=== PATIENT | female | born 1945 | race Caucasian/White ===

== ENCOUNTER → 2019-04-09 09:52 | Outpatient (CLI) | payer MEDICARE, SELFPAY ==
--- NOTE | 2019-04-09 09:59 | DI.RAD.S_ITS ---
PROCEDURE: XR SHOULDER LT MIN 2V INDICATIONS: left shoulder pain, limited ROM TECHNIQUE: 3 views of the shoulder were acquired. COMPARISON: None. FINDINGS: Bones: No fractures or dislocations there is moderately severe degenerative changes at the acromioclavicular joint and also there are severe degeneration of the glenohumeral joint.. No suspicious bony lesions. Visualized ribs appear intact. Soft tissues: No suspicious soft tissue calcifications. IMPRESSION: Shoulder joint degenerative osteoarthritis is, overall, quite severe but no trauma is found. Dictated by: Grant Shane M.D. on 04/09/2019 at 15:11 Approved by: Grant Shane M.D. on 04/09/2019 at 15:12
== END ==
PROVIDERS: Family Provider Family Medicine; Visit Provider Nurse Practitioner Family
DX: M25.512 Pain in left shoulder (principal); M19.012 Primary osteoarthritis, left shoulder
CPT/HCPCS: 73030

== ENCOUNTER → 2019-07-18 11:06 | Outpatient (CLI) | payer MEDICARE, SELFPAY ==
--- NOTE | 2019-07-18 | DI.US.S_ITS ---
PROCEDURE: US RETRO PERITONEAL LIMITED INDICATIONS: ABDOMINAL AORTIC ANEURYSM WITHOUT RUPTURE TECHNIQUE: Real time scanning was performed of the aorta and iliac arteries, with image documentation. COMPARISON: None. FINDINGS: Aorta: Proximal aortic diameter measures 1.7 cm. Mid-aorta measures 1.8 cm. Distal aortic diameter is 1.6 cm. Iliac arteries: Right common iliac artery measures 1.2 cm. Left common iliac artery measures 1.1 cm. IMPRESSION: No abdominal aortic or proximal common iliac artery aneurysm. Dictated by: Jose Manuel GAO Interpreted: Anyi Ambrocio MD on 07/18/2019 at 14:54 Approved by: Anyi Ambrocio M.D. on 07/18/2019 at 16:02
[2019-07-18 11:58] LABS: RBC Urine None Seen (0-5/HPF)
[2019-07-18 12:00] LABS: Add Manual Diff / Slide Review NO; Basophils Absolute Auto 100 /uL (0-100); Basophils Percent Auto 0.8 % (0-2); Eosinophils Absolute Auto 300 /uL (0-450); Eosinophils Percent Auto 4.7 % (2-4); Hematocrit 41.9 % (36-46); Hemoglobin 14.2 g/dL (12.0-16.0); Lymphocytes Absolute Auto 1100 /uL (1100-4500); Lymphocytes Percent Auto 15.9 % (25-40); Mean Corpuscular HGB Conc 33.8 % (30-36); Mean Corpuscular Hemoglobin 31.4 PG (26-34); Mean Corpuscular Volume 92.8 fL (80-100); Monocytes Absolute Auto 700 /uL (0-900); Monocytes Percent Auto 10.1 % (3-14); Neutrophils Absolute Auto 4700 /uL (1500-7000); Neutrophils Percent Auto 68.5 % (50-75); Platelet Count 221 X10^3/uL (150-400); Red Blood Cell Count 4.52 X10^6/uL (4.0-5.2); Red Cell Distribution Width 13.6 % (11.6-14.8); White Blood Cell Count 6.8 X10^3/uL (4.5-11.0)
[2019-07-18 12:03] LABS: Alanine Aminotransferase 21 IU/L (<35); Albumin 4.3 g/dL (3.5-5.0); Albumin Globulin Ratio 1.1 (1.0-2.8); Alkaline Phosphatase 96 U/L (38-126); Aspartate Aminotransferase 33 IU/L (14-36); Bilirubin Total 0.7 mg/dL (0.2-1.3); Blood Urea Nitrogen 20 mg/dL (7-17); Calcium 9.2 mg/dL (8.4-10.2); Carbon Dioxide 30 mmol/L (22-32); Chloride 98 mmol/L (98-107); Cholesterol 265 mg/dL (140-199); Estimated Glomerular Filt Rate > 60.0 mL/min (>60); Globulin 3.8 g/dL (1.7-4.1); Glucose 114 mg/dL (80-110); HDL Cholesterol 72 mg/dL (40-60); HEMOLYSIS < 15 (0-50); LDL Cholesterol Calculated 175 mg/dL (<100); Potassium 3.1 mmol/L (3.4-5.1); Sodium 138 mmol/L (137-145); Total Protein 8.1 g/dL (6.3-8.2); Triglycerides 90 mg/dL (35-150)
[2019-07-18 12:11] LABS: Appearance Urine UA CLEAR; Bilirubin Urine UA NEGATIVE (NEGATIVE); Color Urine UA YELLOW; Glucose Urine UA NEGATIVE (Negative); Ketones Urine UA TRACE (NEGATIVE); Leukocyte Esterase Urine UA NEGATIVE (NEGATIVE); Nitrite Urine UA NEGATIVE (Negative); Occult Blood Urine UA TRACE-LYSED (Negative); Protein Urine UA TRACE (Negative); Urobilinogen Urine UA 0.2 E.U./dL (0.2)
[2019-07-18 12:27] LABS: Bacteria Urine Many (>30); Mucus Urine 1+ (Negative); Squamous Epithelial Cell Urine >30 /HPF (0-5/HPF); WBC Urine 1-5/HPF (0-5/HPF)
[2019-07-18 12:48] LABS: Free T4, Direct Thyroxine 1.81 ng/dL (0.78-2.19)
[2019-07-18 13:02] LABS: Thyroid Stimulating Hormone 2.54 uIU/mL (0.47-4.68)
== END ==
PROVIDERS: Family Provider Family Medicine; PCP Family Medicine; Referring Provider Internal Medicine; Visit Provider Internal Medicine
DX: I71.4 Abdominal aortic aneurysm, without rupture (principal); E03.9 Hypothyroidism, unspecified; I10 Essential (primary) hypertension; M25.512 Pain in left shoulder
CPT/HCPCS: 36415; 76775; 80053; 80061; 81001; 84439; 84443; 84481; 85025

== ENCOUNTER → 2020-02-10 07:55 | Outpatient (CLI) | payer MEDICARE, SELFPAY ==
[2020-02-10 08:10] LABS: Bacteria Urine None Seen; RBC Urine None Seen (0-5/HPF); WBC Urine None Seen (0-5/HPF)
[2020-02-10 08:56] LABS: Add Manual Diff / Slide Review NO; Basophils Absolute Auto 0 /uL (0-100); Basophils Percent Auto 0.9 % (0-2); Eosinophils Absolute Auto 300 /uL (0-450); Eosinophils Percent Auto 5.1 % (2-4); Hemoglobin 13.7 g/dL (12.0-16.0); Lymphocytes Absolute Auto 800 /uL (1100-4500); Lymphocytes Percent Auto 16.5 % (25-40); Mean Corpuscular HGB Conc 33.3 % (30-36); Mean Corpuscular Hemoglobin 31.4 PG (26-34); Mean Corpuscular Volume 94.1 fL (80-100); Monocytes Absolute Auto 600 /uL (0-900); Monocytes Percent Auto 11.7 % (3-14); Neutrophils Absolute Auto 3300 /uL (1500-7000); Neutrophils Percent Auto 65.8 % (50-75); Platelet Count 179 X10^3/uL (150-400); Red Blood Cell Count 4.36 X10^6/uL (4.0-5.2); Red Cell Distribution Width 12.6 % (11.6-14.8); White Blood Cell Count 5.1 X10^3/uL (4.5-11.0)
[2020-02-10 09:21] LABS: Alanine Aminotransferase 14 IU/L (<35); Albumin 3.9 g/dL (3.5-5.0); Albumin Globulin Ratio 1.1 (1.0-2.8); Alkaline Phosphatase 92 U/L (38-126); Aspartate Aminotransferase 25 IU/L (14-36); BUN Creatinine Ratio 16.5 (6-22); Bilirubin Total 0.7 mg/dL (0.2-1.3); Blood Urea Nitrogen 13 mg/dL (7-17); Calcium 8.9 mg/dL (8.4-10.2); Carbon Dioxide 32 mmol/L (22-32); Chloride 103 mmol/L (98-107); Cholesterol 223 mg/dL (140-199); Estimated Glomerular Filt Rate > 60.0 mL/min (>60); Globulin 3.4 g/dL (1.7-4.1); Glucose 95 mg/dL (80-110); HDL Cholesterol 60 mg/dL (40-60); HEMOLYSIS < 15 (0-50); LDL Cholesterol Calculated 146 mg/dL (<100); Potassium 3.7 mmol/L (3.4-5.1); Sodium 140 mmol/L (137-145); Total Protein 7.3 g/dL (6.3-8.2); Triglycerides 83 mg/dL (35-150)
[2020-02-10 09:44] LABS: TSH w/ Reflex to FT4 3.24 uIU/mL (0.47-4.68)
[2020-02-10 10:34] LABS: Appearance Urine UA CLEAR; Bilirubin Urine UA NEGATIVE (NEGATIVE); Color Urine UA YELLOW; Glucose Urine UA NEGATIVE (Negative); Ketones Urine UA NEGATIVE (NEGATIVE); Leukocyte Esterase Urine UA NEGATIVE (NEGATIVE); Nitrite Urine UA NEGATIVE (Negative); Occult Blood Urine UA NEGATIVE (Negative); Protein Urine UA NEGATIVE (Negative); Urobilinogen Urine UA 0.2 E.U./dL (0.2)
[2020-02-10 10:42] LABS: Culture Indicated Urine Cult Not Indicated; Squamous Epithelial Cell Urine >30 /HPF (0-5/HPF)
[2020-02-11 07:39] LABS: Insulin Level Total 7.2 uIU/mL (2.6-24.9)
== END ==
PROVIDERS: Family Provider Family Medicine; PCP Internal Medicine; Referring Provider Internal Medicine; Visit Provider Internal Medicine
DX: I10 Essential (primary) hypertension (principal); E03.9 Hypothyroidism, unspecified; Z91.09 Other allergy status, other than to drugs and biological substances; Z68.41 Body mass index [BMI] 40.0-44.9, adult
CPT/HCPCS: 36415; 80053; 80061; 81001; 83525; 84443; 85025